=== PATIENT | male | born 1995 | race Caucasian/White ===

== ENCOUNTER 2023-01-04 11:25 | Emergency (ER) | payer BC ==
[~2023-01-04] VITALS: Ht 185.4 cm; Wt 80.6 kg
[2023-01-04 12:11] LABS: Urine Bacteria NONE SEEN /hpf (None Seen); Urine Blood Negative /uL (Negative); Urine WBC 1 /hpf (0 - 3)
[2023-01-04] MEDS ORDERED: LEVO500T31 PO (12:58)
[2023-01-04 13:11] VITALS: BP 132/70
== END 2023-01-04 13:24 | disposition home or self-care (01) ==
LOC: ER 11:25
DX: N30.90 Cystitis, unspecified without hematuria (principal); N34.2 Other urethritis
CPT/HCPCS: 81001